=== PATIENT | female | born 1965 | race Caucasian/White ===

== ENCOUNTER 2016-11-30 09:19 | Day surgery (SDC) | payer OTHER ==
[~2016-11-30] VITALS: Ht 162.6 cm; Wt 57.0 kg
[~2016-11-30 09:19] MED LIST: ADAL40KI SQ; CHOL200047 PO; ESTR1TAB24 PO; IBUP800T28 PO; IMI100 PO; OMEG-38 PO; Sodium Chloride LOK Flush 10 mL Syringe IV PRN; fentaNYL-PF 50 mCg/mL 2 mL Inj IVPUSH PRN
[2016-11-30 09:40] VITALS: BP 114/69; PULSE 69; RESP 16; O2SAT 100
[2016-11-30] MEDS ORDERED: [UNRECOGNIZED DRUG - OTHER] (09:41)
[2016-11-30] MEDS: 0.9% Sodium Chloride 1,000 ML IV SCH ×2 (10:29→10:44)
[2016-11-30 10:57] VITALS: BP 101/53; PULSE 78; RESP 16; O2SAT 94
[2016-11-30 11:06] VITALS: BP 107/62; PULSE 67; RESP 16; O2SAT 97
[2016-11-30 11:09] VITALS: BP 106/68; PULSE 77; RESP 16; O2SAT 100
--- NOTE | 2016-11-30 11:28 | ENDO ---
[address] [address] ENDOSCOPY PROCEDURE PATIENT: YOSELYN MCKEE : 1965 MR#: [id number] ADMIT: 11/30/2016 JOB ID: [id number] PROCEDURE: Colonoscopy. INDICATION: Screening. ANESTHESIA: Patient's ASA classification is two. Mallampati score is two. MEDICATIONS: 1. Versed 5 mg. 2. Fentanyl 100 mcg. INSTRUMENT USED: PCF-H180AL. PREPARATION QUALITY: Good. PROCEDURE DETAILS: After informed consent was obtained, the patient was brought to the GI suite, where she was placed on oxygen via nasal cannula and monitored with continuous pulse oximeter, telemetry, and blood pressure monitoring. A time-out was performed, then she was placed in the left lateral decubitus position and medications were administered for sedation. Digital rectal exam was performed, which was unremarkable except for a small internal hemorrhoid. The colonoscope was then inserted into the rectum and advanced under direct visualization to the cecum, which identified by the presence of the appendiceal orifice and the ileocecal valve. Once the cecum was reached, the colonoscope was withdrawn back into the rectum as the mucosa and lumen were examined. In the rectum, retroflexion was performed. Following retroflexion, the remaining air in the rectum was suctioned and the procedure was completed. FINDINGS: 1. External hemorrhoid. 2. Otherwise normal exam from rectum to cecum. IMPRESSION: Normal colonoscopy. RECOMMENDATIONS: 1. Repeat colonoscopy in 10 years, sooner if symptoms should dictate. 2. Fiber-rich diet. COMPLICATIONS: None. ESTIMATED BLOOD LOSS: Zero.
== END 2016-11-30 23:59 | disposition home or self-care (01) ==
LOC: END 09:19
PROVIDERS: ATTEND Internal Medicine Gastroenterology
DX: Z12.11 Encounter for screening for malignant neoplasm of colon (principal); K64.9 Unspecified hemorrhoids; Z79.899 Other long term (current) drug therapy